=== PATIENT | female | born 1980 | race African-American/Black ===

== ENCOUNTER 2017-05-28 09:22 | Emergency (ER) | payer MEDICARE, MEDICAID ==
[2017-05-28 09:54] LABS: #Eosinphils 0.1 thou/uL (0.0-0.7); #Lymphocytes 1.6 thou/uL (1.20-3.40); #Monocytes 0.7 thou/uL (0.11-0.59); #Neutrophils 9.8 thou/uL (1.40-6.50); %Basophils 0.3 % (0.0-1.0); %Eosinophils 0.9 % (0.0-10.0); %Lymphocytes 12.8 % (21.0-51.0); %Monocytes 5.6 % (0.0-10.0); %Neutrophils 80.4 % (42.0-75.0); Hemoglobin 10.2 g/dL (12.0-16.0); Mean Corpuscular HGB CONC 31.8 g/dL (32.0-36.0); Mean Corpuscular Hemoglobin 31.9 pg (27.0-31.0); Mean Platelet Volume 8.2 fL (7.4-10.4); Platelet Count 305 thou/uL (130-400); RBC Distribution Width 19.9 % (11.5-14.5); Red Blood Cell (RBC) Count 3.19 mill/uL (4.20-5.40); White Blood Cell (WBC) Count 12.1 thou/uL (4.8-10.8)
[2017-05-28] MEDS ORDERED: Nitroglycerin 2% Ointment 1 INCH/1 GM Packet ONE (09:59)
[2017-05-28] MEDS ORDERED: hydrALAZINE 20 MG/ML VIAL ONE (09:59)
[2017-05-28 10:21] LABS: ALT (SGPT) 16 U/L (8-55); AST (SGOT) 19 U/L (5-34); Albumin 3.7 g/dL (3.5-5.0); Alkaline Phosphatase 106 U/L (40-150); Anion Gap 20 mmol/L (10-20); BUN (Urea Nitrogen) 21 mg/dL (7.0-18.7); Bilirubin, Total 1.1 mg/dL (0.2-1.2); Calc. Creatinine Clearance 0 mL/min (70-130); Calcium 9.6 mg/dL (7.8-10.44); Carbon Dioxide 28 mmol/L (22-29); Chloride 96 mmol/L (98-107); Estimated GFR-MDRD 10; Globulin 4.6 g/dL (2.4-3.5); Glucose 165 mg/dL (70-105); Potassium 3.4 mmol/L (3.5-5.1); Protein, Total 8.3 g/dL (6.0-8.3); Sodium 141 mmol/L (136-145)
--- NOTE | 2017-05-28 10:22 | RAD ---
PORTABLE CHEST 1 VIEW: DATE: 05/28/17. TIME: 10:06 a.m. HISTORY: Chest pain. FINDINGS/IMPRESSION: Comparison is made with the exam of 12/21/16. The heart size is normal. A right-sided double-lumen venous catheter is seen with tip in the project ion of the cavoatrial junction. There is a mild infiltrate in the right infrahilar region. No pneum othorax or large effusions are seen. POS: [facility]
[2017-05-28 11:06] LABS: CKMB 1.2 ng/mL (0-6.6); Troponin I 0.037 ng/mL (< 0.028)
== END 2017-05-28 11:10 | disposition left against medical advice (07) ==
LOC: ERS 09:22
DX: I13.2 Hypertensive heart and chronic kidney disease with heart failure and with stage 5 chronic kidney disease, or end stage renal disease (principal); I50.9 Heart failure, unspecified; E11.22 Type 2 diabetes mellitus with diabetic chronic kidney disease; N18.6 End stage renal disease; J18.9 Pneumonia, unspecified organism; E78.5 Hyperlipidemia, unspecified; F41.9 Anxiety disorder, unspecified; F32.9 Major depressive disorder, single episode, unspecified; F17.210 Nicotine dependence, cigarettes, uncomplicated; Z99.2 Dependence on renal dialysis; Z79.899 Other long term (current) drug therapy
CPT/HCPCS: 36415; 71010; 80053; 82553; 83880; 84484; 85025; 93005; 96374; J0360

== ENCOUNTER 2017-06-13 19:50 | Emergency (ER) | payer MEDICARE, MEDICAID ==
[2017-06-13 20:35] LABS: #Basophils 0.1 thou/uL (0.0-0.2); #Eosinphils 0.1 thou/uL (0.0-0.7); #Lymphocytes 2.6 thou/uL (1.20-3.40); #Monocytes 0.9 thou/uL (0.11-0.59); #Neutrophils 7.5 thou/uL (1.40-6.50); %Basophils 0.8 % (0.0-1.0); %Eosinophils 1.1 % (0.0-10.0); %Lymphocytes 23.1 % (21.0-51.0); %Monocytes 8.1 % (0.0-10.0); %Neutrophils 66.9 % (42.0-75.0); Hemoglobin 10.4 g/dL (12.0-16.0); Mean Corpuscular Hemoglobin 31.4 pg (27.0-31.0); Mean Corpuscular Volume 98.2 fl (81.0-99.0); Mean Platelet Volume 8.3 fL (7.4-10.4); Platelet Count 299 thou/uL (130-400); RBC Distribution Width 19.2 % (11.5-14.5); Red Blood Cell (RBC) Count 3.31 mill/uL (4.20-5.40); White Blood Cell (WBC) Count 11.2 thou/uL (4.8-10.8)
--- NOTE | 2017-06-13 20:41 | RAD ---
PORTABLE AP CHEST X-RAY 06/13/17 HISTORY: Cough. COMPARISON: 05/28/17. FINDINGS: A tunneled right internal jugular vein hemodialysis catheter remains in place. Cardiac silhouette is magnified by projection but does appear mildly enlarged. Pulmonary vasculature is within normal limit s. Lungs are clear. there is mild elevation of the right hemidiaphragm with minimal atelectasis at th e right lung base. The lungs are otherwise clear. Patchy parenchymal opacity at the right lung base i s less apparent on today's exam. No other interval change. IMPRESSION: No acute cardiopulmonary process. POS: [facility]
[2017-06-13] MEDS ORDERED: Ondansetron ODT 8 MG TAB ONE (20:44)
[2017-06-13] MEDS ORDERED: Acetaminophen 500 MG TAB ONE (20:44)
[2017-06-13] MEDS ORDERED: Ondansetron HCl/PF 4 MG/2 ML Vial ONE (20:48)
[2017-06-13 20:56] LABS: Troponin I 0.092 ng/mL (< 0.028)
[2017-06-13 21:00] LABS: ALT (SGPT) 9 U/L (8-55); AST (SGOT) 24 U/L (5-34); Albumin 3.8 g/dL (3.5-5.0); Alkaline Phosphatase 84 U/L (40-150); Anion Gap 25 mmol/L (10-20); BUN (Urea Nitrogen) 37 mg/dL (7.0-18.7); Calc. Creatinine Clearance 0 mL/min (70-130); Calcium 10.1 mg/dL (7.8-10.44); Carbon Dioxide 30 mmol/L (22-29); Chloride 88 mmol/L (98-107); Estimated GFR-MDRD 7; Globulin 4.9 g/dL (2.4-3.5); Glucose 103 mg/dL (70-105); Potassium 4.6 mmol/L (3.5-5.1); Protein, Total 8.7 g/dL (6.0-8.3); Sodium 138 mmol/L (136-145)
[2017-06-13] MEDS ORDERED: hydrALAZINE 20 MG/ML VIAL ONE (21:02)
[2017-06-13] MEDS ORDERED: Metoprolol Tartrate 5 MG/5 ML VIAL ONE (21:46)
== END 2017-06-13 22:34 | disposition home or self-care (01) ==
LOC: ERS 19:50
DX: R11.2 Nausea with vomiting, unspecified (principal); E78.5 Hyperlipidemia, unspecified; E11.22 Type 2 diabetes mellitus with diabetic chronic kidney disease; I12.0 Hypertensive chronic kidney disease with stage 5 chronic kidney disease or end stage renal disease; N18.6 End stage renal disease; F41.9 Anxiety disorder, unspecified; F32.9 Major depressive disorder, single episode, unspecified; F17.210 Nicotine dependence, cigarettes, uncomplicated; Z79.4 Long term (current) use of insulin; Z79.891 Long term (current) use of opiate analgesic; Z79.899 Other long term (current) drug therapy
CPT/HCPCS: 71045; 80053; 82553; 84484; 85025; 93005; 96374; 96375; 99406; J0360; J2405

== ENCOUNTER 2017-07-05 13:13 | Emergency (ER) | payer MEDICARE, MEDICAID ==
[2017-07-05] MEDS ORDERED: Ciprofloxacin 500 MG TAB ONE (13:51)
== END 2017-07-05 14:07 | disposition home or self-care (01) ==
LOC: ERS 13:13
DX: G89.18 Other acute postprocedural pain (principal); M79.632 Pain in left forearm; E78.5 Hyperlipidemia, unspecified; E11.9 Type 2 diabetes mellitus without complications; I10 Essential (primary) hypertension; N18.6 End stage renal disease; Z99.2 Dependence on renal dialysis; F41.9 Anxiety disorder, unspecified; F32.9 Major depressive disorder, single episode, unspecified; F17.210 Nicotine dependence, cigarettes, uncomplicated; Z79.899 Other long term (current) drug therapy; Z79.4 Long term (current) use of insulin
CPT/HCPCS: 96372

== ENCOUNTER 2017-07-29 21:16 | Emergency (ER) | payer MEDICARE, MEDICAID ==
[2017-07-29] MEDS ORDERED: Morphine 2 MG/ML SYRINGE ONE (22:03)
[2017-07-29] MEDS ORDERED: Ketorolac Tromethamine 30 MG/ML VIAL ONE (22:03)
== END 2017-07-29 22:33 | disposition home or self-care (01) ==
LOC: ERS 21:16
DX: K02.9 Dental caries, unspecified (principal); E11.22 Type 2 diabetes mellitus with diabetic chronic kidney disease; I12.0 Hypertensive chronic kidney disease with stage 5 chronic kidney disease or end stage renal disease; N18.6 End stage renal disease; F41.9 Anxiety disorder, unspecified; F32.9 Major depressive disorder, single episode, unspecified; F17.210 Nicotine dependence, cigarettes, uncomplicated
CPT/HCPCS: 96372; 99406; J1885; J2270

== ENCOUNTER 2017-08-15 09:14 | Outpatient (CLI) | payer MEDICARE, MEDICAID | END 2017-08-15 09:15 | disposition home or self-care (01) | LOC: BICULT 09:14 | PROVIDERS: ATTEND Internal Medicine Gastroenterology | DX: B18.2 Chronic viral hepatitis C (principal); R16.0 Hepatomegaly, not elsewhere classified; R93.422 Abnormal radiologic findings on diagnostic imaging of left kidney; R93.421 Abnormal radiologic findings on diagnostic imaging of right kidney; Z90.49 Acquired absence of other specified parts of digestive tract | CPT/HCPCS: 76705 ==

== ENCOUNTER 2017-10-10 17:18 | Emergency (ER) | payer MEDICARE, MEDICAID ==
[2017-10-10] MEDS ORDERED: HYDROcodone/Acetaminophen 5/325 mg Tablet ONE (18:16)
--- NOTE | 2017-10-10 18:33 | RAD ---
CHEST ONE VIEW 10/10/17 HISTORY: Chest pain. COMPARISON: Chest radiograph 06/13/17. FINDINGS: Dialysis catheter has been removed. Heart size is enlarged. Mild edema. Small effusions. No pneumotho rax. IMPRESSION: Cardiomegaly with mild volume overload. POS: [facility]
== END 2017-10-10 19:16 | disposition home or self-care (01) ==
LOC: ERS 17:18
DX: R07.89 Other chest pain (principal); E11.22 Type 2 diabetes mellitus with diabetic chronic kidney disease; I12.0 Hypertensive chronic kidney disease with stage 5 chronic kidney disease or end stage renal disease; E78.5 Hyperlipidemia, unspecified; N18.6 End stage renal disease; F32.9 Major depressive disorder, single episode, unspecified; F41.9 Anxiety disorder, unspecified; F17.210 Nicotine dependence, cigarettes, uncomplicated; Z99.2 Dependence on renal dialysis
CPT/HCPCS: 71045

== ENCOUNTER 2017-12-13 15:14 | Emergency (ER) | payer MEDICARE, MEDICAID ==
[~2017-12-13 15:14] MED LIST: Calcium Chloride 1 GM/10 ML Abboject SYRINGE ONE; EPINEPHrine 1 MG/10 ML Abboject SYRINGE ONE; Naloxone HCl 0.4 mg/ml Vial ONE; Sodium Bicarb 50 MEQ/50 ML Abboject 8.4% SYRINGE ONE
[2017-12-13] MEDS ORDERED: Naloxone HCl 2 mg/2 ml Syringe ONE (15:24)
[2017-12-13 15:43] LABS: Base Excess-Venous -9.7 mmol/L (0 (+/- 2.5)); Bicarbonate (HCO3v) 23.8 mmol/L (1.0-85.0); CO2 Tension (PvCO2) 94.5 mmHg (41.0-51.0); Calcium, Ionized 1.26 mmol/L (1.12-1.32); Hemoglobin - Calc 14.6 g/dL (12.0-18.0); Lactate 12.51 mmol/L (0.50-2.20); O2 Tension (PvO2) 50.3 mmHg (35.0-45.0); Potassium 4.7 mmol/L (3.4-4.7); T. Carbon Dioxide 26.7 mmol/L (1.0-85.0); pH (Venous) 7.009 (7.35-7.45); vO2 Saturation-calc 63.1 % (94-98)
== END 2017-12-13 15:39 | disposition expired ==
LOC: ERS 15:14
DX: I46.9 Cardiac arrest, cause unspecified (principal); E11.9 Type 2 diabetes mellitus without complications; E78.5 Hyperlipidemia, unspecified; I12.0 Hypertensive chronic kidney disease with stage 5 chronic kidney disease or end stage renal disease; N18.6 End stage renal disease; F41.9 Anxiety disorder, unspecified; F32.9 Major depressive disorder, single episode, unspecified; F17.210 Nicotine dependence, cigarettes, uncomplicated; Z99.2 Dependence on renal dialysis
CPT/HCPCS: 31500; 82330; 82435; 82565; 82803; 82947; 83605; 84132; 84295; 85014; 96374; 96375; J0171; J2310